=== PATIENT | male | born 1995 | race Caucasian/White ===

== ENCOUNTER 2021-06-20 15:01 | Emergency (ER) | payer OTHER ==
[~2021-06-20] VITALS: Ht 177.8 cm; Wt 86.4 kg
[2021-06-20] MEDS ORDERED: KETOROLAC TROMETHAMINE 30 MG/ML VIAL IM ONE (16:15)
[2021-06-20 17:17] VITALS: BP 136/89
== END 2021-06-20 18:05 | disposition home or self-care (01) ==
LOC: EMS 15:01
DX: G56.01 Carpal tunnel syndrome, right upper limb (principal)
CPT/HCPCS: 29125; 73110; 96372; 99283; J1885